=== PATIENT | male | born 1965 | race Caucasian/White ===

== ENCOUNTER → 2020-06-07 15:14 | Outpatient (REF) | payer OTHER, SELFPAY ==
--- NOTE | 2020-06-07 15:00 | CA_ITS ---
Transthoracic Echocardiogram Patient (Last, First, Middle): Christopher Jeffery M Gender: Male Date of : 1965 Age: 54 Procedure Date: 06/07/2020 Procedure Type: Transthoracic Echocardiogram Location: OP Height: 175.26 cm Weight: 113.4 kg BSA: 2.27 m2 Heart Rate: bpm BP: 120 / 80 mmHg Cloth Opener Hand: JAYSON Referring MD: Franco Arana [facility] Symptoms: R01.1 SYSTOLIC MURMUR Study Quality: Good ECG Rhythm: Sinus Conclusions: - The left ventricular systolic function is normal. The visually estimated ejection fraction is between 60-65%. - No obvious valvular pathology seen on this study. Findings Left Ventricle Normal left ventricular cavity size. There is normal left ventricular wall thickness. The left ventricular systolic function is normal. The visually estimated ejection fraction is between 60-65%. There is no evidence of regional wall motion abnormalities. Diastolic function is normal for age. Right Ventricle Normal right ventricular cavity size and systolic function. Atria The left atrium is normal in size. The right atrium is normal in size. Aortic Valve There is a normal trileaflet aortic valve. There is no aortic valve stenosis. There is no aortic valve regurgitation. Mitral Valve The mitral valve appears normal. There is trace mitral valve regurgitation. There is no mitral valve stenosis. Pulmonic Valve The pulmonic valve was not well visualized. There is trace pulmonic valve regurgitation. Tricuspid Valve Normal tricuspid valve structure. There is trace tricuspid valve regurgitation. The pulmonary artery systolic pressure is normal. Great Vessels The aortic annulus, sinuses of valsalva, and asc aorta are normal in size. Venous The inferior vena cava is normal in size and collapses greater than 50% with inspiration. Pericardium/Pleural There is no evidence of pericardial effusion. Prior Study Comparison No prior study available for comparison. Recommendations, Care & Conclusions No obvious valvular pathology seen on this study. Measurements 2D Linear Measurements IVSd: 1.00 0.6-0.9/0.6-1.0 cm LVIDd: 4.01 3.9-5.3/4.2-5.9 cm LVIDd Index: 1.77 2.4-3.2/2.2-3.1 cm/m2 LVIDs: 2.89 2.0-3.6 cm LVPWd: 0.91 0.7-1.1 cm Ao Root: 3.00 2.1-3.5 cm LA Diam: 3.90 2.7-3.8/3.0-4.0 cm LAIDs Index: 1.72 1.5-2.3 cm/m2 LV Mass: 148.28 67-162/88-224 g LV Mass Index: 65.32 43-95/49-115 g/m2 LVOT Diam: 2.20 3.0+(-)1.3 cm 2D Systolic Function EF 4C: 73.80 >55% Mitral Valve MV Pk E: 0.60 MV PK A: 0.58 MV Decel Time: 195.00 E/A: 1.00 E'Lateral: 10.40 E'Medial: 7.54 E/E' Med: 7.90 E/E' Lat: 5.70 PHT: 57.00 MVA PHT: 3.86 Decel [place]: 3.05 Aortic Valve AoV Pk Fred: 1.14 AoV Pk Grad: 5.00 LVOT LVOT Pk Fred: 1.04 LVOT Mn Fred: 0.71 LVOT VTI: 0.21 LVOT Pk Grad: 4.00 LVOT Mn Grad: 2.00 LVOT Diam: 2.20 LVOT Area: 3.80 Diastolic Function MV Pk E: 0.60 MV Pk A: 0.58 E/A: 1.00 E'Medial: 7.54 E/E' Med: 7.90 E' Laterial: 10.40 E/E' Lat: 5.70 Great Vessels Aorta Ao Root-2D: 3.00 2.0-3.7 cm Ao Asc: 3.30 2.1-3.4 cm Updated in Other Vendor System with Status of Final Jose Cruz Villegas MD electronically signed on 06/09/2020 5:21:42 PM with status of Final
== END ==
LOC: HO.CARD 15:14
PROVIDERS: PCP Nurse Practitioner Family; Visit Provider Nurse Practitioner Family
DX: R01.1 Cardiac murmur, unspecified (principal)
CPT/HCPCS: 93306

== ENCOUNTER 2020-06-29 14:52 | Outpatient (REF) | payer OTHER, SELFPAY ==
--- NOTE | 2020-06-29 14:56 | US_ITS ---
EXAMINATION: US ABDOMEN LIMITED CLINICAL INFORMATION: Abdominal bulge. Evaluate for hernia.. COMPARISON: None TECHNIQUE: Real-time imaging of the midline upper abdominal wall using a linear and curved transducer FINDINGS: No hernia is appreciated by ultrasound. No solid or cystic soft tissue mass or fluid collection is seen. US/US abdomen limited IMPRESSION: No hernia appreciated by ultrasound.
== END 2020-06-29 14:53 | disposition home or self-care (01) ==
LOC: HO.HMGCX 14:52
PROVIDERS: PCP Nurse Practitioner Family; Visit Provider Nurse Practitioner Family
DX: R10.31 Right lower quadrant pain (principal)
CPT/HCPCS: 76705

== ENCOUNTER 2025-04-20 09:45 | Outpatient (REF) | payer OTHER, SELFPAY ==
[2025-04-20 14:06] LABS: Hematocrit 46.9 % (42.0-52.0); Hemoglobin 16.3 g/dl (14.0-18.0); Mean Corpuscular HGB Conc 34.8 g/dl (31.0-36.0); Mean Corpuscular Hemoglobin 31.2 pg (27.0-33.0); Mean Corpuscular Volume 89.7 fL (80.0-98.0); NRBC Abs Auto 0.000 X10*3/uL (0.0-0.012); NRBC Pct Auto 0.0 /100WBC (0.0-0.2); Platelet Count 270 X10*3/uL (160-400); Red Blood Count 5.23 X10*6/uL (4.60-5.80); White Blood Count 6.9 X10*3/uL (4.8-10.8)
[2025-04-20 14:18] LABS: Hemoglobin A1C 160.6561 umol/L; Total Hemoglobin (HGBA1C) 4227.8221 umol/L
[2025-04-20 14:30] LABS: Alanine Aminotransferase 66 U/L (0-40); Albumin Level 4.8 g/dL (3.5-5.0); Alkaline Phosphatase 89 U/L (39-117); Anion Gap 14 (12-20); Aspartate Amino Transferase 45 U/L (5-37); Blood Urea Nitrogen 14 mg/dL (9-16); Calcium 9.6 mg/dL (8.4-10.2); Carbon Dioxide 24 mmol/L (22-29); Chloride 104 mmol/L (96-108); Cholesterol 221 mg/dL (<200); Estimated Glomerular Filt Rate > 60; HDL Cholesterol 33 mg/dL (>40); Potassium 3.9 mmol/L (3.3-5.1); Sodium 138 mmol/L (135-145); Total Protein 7.9 g/dL (6.5-8.0); Triglycerides 453 mg/dL (<150)
[2025-04-20 14:31] LABS: Microalbum/Creatinine Ratio Ur 11.8 ug/mg cr (<30)
[2025-04-20 14:54] LABS: Folate 7.8 ng/mL (> or = 4.0); Vitamin B12 446 pg/mL (200-900)
== END 2025-04-20 09:46 | disposition home or self-care (01) ==
LOC: HO.WFDLDS 09:45
PROVIDERS: PCP Nurse Practitioner Family; Visit Provider Nurse Practitioner Family
DX: Z00.00 Encounter for general adult medical examination without abnormal findings (principal); Z13.1 Encounter for screening for diabetes mellitus; Z12.5 Encounter for screening for malignant neoplasm of prostate; Z76.89 Persons encountering health services in other specified circumstances; I10 Essential (primary) hypertension; E66.9 Obesity, unspecified; Z68.38 Body mass index [BMI] 38.0-38.9, adult
CPT/HCPCS: 36415; 80053; 80061; 82043; 82306; 82570; 82607; 82746; 83036; 84153; 84443; 85027; 96127

== ENCOUNTER 2025-04-20 09:45 | Outpatient (AMB) | payer OTHER, SELFPAY ==
--- NOTE | 2025-04-20 09:58 | MHC.PC.OV ---
Vital Signs 04/20/25 10:05 04/20/25 10:12 04/20/25 10:45 Height 5 ft 9 in Weight 260 lb 8 oz BMI 38.5 BP 154/96 H 152/100 H 160/90 H Blood Pressure Location Lt brachial Lt brachial Lt brachial Position Sitting Sitting Sitting Respiration 16 Pulse 76 Pulse Source Pulse Oximeter Temp 97.8 F Temp Source Oral Pulse Oximetry (%) 96 Oxygen Delivery Method Room Air Intake Visit Reasons: CPE Intake Note: New patient visit Mediator Required: No Allergies No Known Allergies (No Known Allergies*) Allergy (Verified 04/20/25 10:34) Medication List - Last Reconciled 04/20/25 by GRADY Enriquez No Known Home Meds Tobacco use date assessed: 04/20/25 Dental Screening Dental Screen Date: 04/20/25 Did you have a dental visit in the last 12 months?: No Did you have a dental problem in the last 6 months where you did not have access to dental care?: No Was dental information given to patient?: Patient declined HPI HPI Comments History of Present Illness Details 59 y/o M with HTN, obesity Surgery: ACL R repair, L collar bone w/ plate Fhx: Mom cancer; Dad 2022; 2 sisters (1 with DM), 1 bro; 5 children alive and well. 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 . Health Maintenance: Tdap 2022 Colon 2017, poor prep; cologaurd ordered today Specialists: None History of Present Illness - The patient is a 59-year-old male presenting to [facility] care and for a CPe - Previous PCP: Franco Arana, limited records avail, reviewed. - History of essential hypertension controlled with hydrochlorothiazide and lisinopril, now untreated for three years. - No blood pressure issues noted during DOT exams off medication. - Admits to blood pressure increase following consumption of coffee. - Obesity with BMI of 38.5 was noted - Denies current systemic symptoms related to cardiovascular or respiratory systems. Past Surgical History - Previous ACL surgery with subsequent plate placement, not removed. Family History - Mother from cancer of unspecified type. - Father , cause related to pneumonia and underlying illnesses. - Sister with diabetes. - Brother and other sister reported healthy. 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 - Resides in [place]; moved to support son's education and lives by a appiah. - Five children, with one reported to have ADHD; youngest child is 15 and interested in professional fishing. - Reports no current eye examination concerns, though regular vision screenings occur during DOT exams. Health Maintenance - Positive discussion of colon cancer screening via home test kit preferred by the patient. Ordered home fecal test (Cologuard). - No recent colonoscopy since 2018 due to inadequate prep. - Routine DOT vision monitoring discussed but no vessel checks performed during these exams. Review of Systems - Cardiovascular: Denies chest pain, shortness of breath, swelling. - Visual: Denies visual disturbances or need for glasses. - Auditory: Denies ringing in ears. - Respiratory: Denies shortness of breath. - Gastrointestinal: Denies abdominal pain or discomfort. - Musculoskeletal: Recent toe injury, healing appropriately, otherwise unremarkable. - General: Denies headaches, physical complaints reported were temporary and resolved (i.e., coffee-related elevated blood pressure). Physical Exam General: Well developed, well nourished, in no acute distress. Appears stated age. Head: Normocephalic, atraumatic. Eyes: Pupils are equal, round and reactive to light and accommodation. Conjunctivae are clear. Vision grossly normal. Ears: TMs clear AU, EACS WNL. . Nose: Patent, without discharge. Neck: Supple, no adenopathy or thyromegaly. Breast: Edu on SBE Lungs: Clear to auscultation bilaterally. No rales, rhonchi or wheeze noted. Good air flow in all acharya. Heart: Regular rate and rhythm. No murmurs, click, rubs or gallops are noted. Abdomen: Bowel sounds present in all quadrants. The abdomen is soft, nontender, with no masses or organomegaly noted. No hernias are noted. : Deferred. 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 Extremities: No clubbing, cyanosis nor edema is noted. Patient reports a history of a broken toe on the left side, currently healed. Neurologic: Gait and station normal. Cranial Nerves 2-12 intact. Motor strength grossly symmetrical and intact. No sensory loss. Balance normal. Skin: No rashes, ulcers, or lesions noted. Turgor is good. Skin color is good. Hair and nails are without abnormalities. Psych: Normal eye contact, affect and mood appropriate, and normal interactions. Patient is alert and appropriate to context. Results Pending Discussion Notes During the visit, we discussed the patient's need for a reevaluation of his blood pressure management due to the lapse in medication adherence. The importance of resuming antihypertensive therapy with possible medication reassessment after lab evaluation was emphasized. The patient was amenable to home monitoring or using local facilities for blood pressure checks and agreed to return within two weeks for follow-up and review of blood pressure logs and lab results. For screening, a home-based fecal test for colon cancer screening was ordered. The pros and cons, simplicity, and follow-through of the home fecal test were explained. The patient consented to this plan and will be notified of the results. Return precautions for high blood pressure were reviewed, including potential lifestyle modifications. Patient was given time to ask questions. All questions were answered to their satisfaction. Assessment and Plan 1. Essential Hypertension - Medication assessment post-lab results, BP monitoring at home/pharmacy. - Follow-up in two weeks for BP and lab review. 2. Obesity - Current BMI of 38.5, lifestyle discussions not specified during visit. 3. Family History of Diabetes - Noted for future reference. 4. Family History of Cancer - Ordered Cologuard for home colon cancer screening. Patient Instructions - Continue monitoring your blood pressure at home or local pharmacy. - Return in two weeks with blood pressure logs for review. - Follow up on home fecal test for colon cancer screening and complete upon receipt. - Note changes that might require earlier consultation (high BP symptoms, lab results). Consent Patient was informed and verbally consented to the use of an ambient scribe for clinic note documentation during this visit. An additional 35 minutes was spent addressing the problem(s) noted at todays visit. This includes time spent before the visit reviewing the chart, time spent during the visit, and time spent after the visit on documentation reviewing laboratory results, diagnostic imaging, medications, performing a medically necessary evaluation, counseling on diagnoses, care coordination, ordering appropriate tests, ordering appropriate medications, review of tests performed by other providers, reporting test results with the patient, communication with other healthcare providers. 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 1. Little interest or pleasure in doing things: not at all 2. Feeling down, depressed, or hopeless: not at all 3. Trouble falling or staying asleep, or sleeping too much: not at all 4. Feeling tired or having little energy: not at all 5. Poor appetite or overeating: not at all 6. Feeling bad about yourself - or that you are a failure or have let yourself or your family down: not at all 7. Trouble concentrating on things, such as reading the newspaper or watching television: not at all 8. Moving or speaking so slowly that other people could have noticed. Or the opposite - being so fidgety or restless that you have been moving around a lot more than usual: not at all 9. Thoughts that you would be better off or of hurting yourself in some way: not at all Total score: 0 Depression Screening Interpretation: Negative Depression Screening Done: Yes 93468 - PHQ-9 Billing: Yes Source: Developed by Drs. Maldonado Sheehan, Jennifer Saeed, Juni Baez and colleagues, with an educational bertha from [employer]. Thrive Questionnaire Date Thrive assessed: 04/13/25 I am a: Patient What is your living situation today?: I have a steady place to live Within the past 12 months, did the food you bought not last and you didn't have the money to get more?: Never true Within the past 12 months, did you worry whether your food would run out before you got money to buy more?: Never true Do you have trouble paying for medicines?: No Do you have trouble getting transportation to medical appointments?: No Do you have trouble paying your heating and electricity bill?: No Do you have trouble taking care of your child, family member or friend?: No Do you have trouble with day-to-day activities such as bathing, preparing meals, shopping, managing finances, etc.?: No Are you currently unemployed and looking for a job?: No Are you interested in more education?: No Please select the resources that you would like help with: None Currently or been in a relationship where the following occur: No concerns reported THRIVE Score: 0 AUDIT C Alcohol Use Questionnaire (AUDIT-C) 1. How often do you have a drink containing alcohol?: 2-4 times a month 2. How many drinks containing alcohol do you have on a typical day when you are drinking?: 3 or 4 3. How often do you have six or more drinks on one occasion?: Never Total Score: 3 Score Reviewed/Action Taken: Yes KERWIN-7 AMB Questionnaire KERWIN-7 Date KERWIN - 7 assessed: 04/20/25 Feeling nervous, anxious, or on edge: 0 = Not at all Not being able to stop or control worryin = Not at all Worrying too much about different things: 0 = Not at all Trouble relaxin = Not at all Being so restless that it is hard to sit still: 0 = Not at all Becoming easily annoyed or irritable: 0 = Not at all Feeling afraid as if something awful might happen: 0 = Not at all Total KERWIN-7 score (0-4 normal; 5-9 mild; 10-14 moderate; 15-21 severe): 0 Source: Developed by Drs. Maldonado Sheehan, Jennifer Saeed, Juni Baez and colleagues, with an educational bertha from [employer]. KERWIN-7 Assessment Billing KERWIN-7 Assessment Tool: KERWIN-7 Assessment 59176 Physical exam (Primary Care) Vital Signs: Last Vital Signs Temp 97.8 F 04/20/25 10:05 Pulse 76 04/20/25 10:05 Resp 16 04/20/25 10:05 BP 152/100 H 04/20/25 10:12 Pulse Ox 96 04/20/25 10:05 Oxygen Delivery Method Room Air 04/20/25 10:05 BMI result Body Mass Index 38.5 BMI Assessment/Plan discussion: High BMI High, discussed plan: lifestyle Tobacco/Smoking Status: Tobacco use Status Tobacco use date assessed 04/20/25 04/20/25 10:08 Patient Tobacco Use Status Never used Tobacco 04/20/25 10:11 e-Cigarette/Vaping Use Never Used 04/20/25 10:11 PHQ-9: PHQ-9 Score PHQ-9: Total score 0 04/20/25 10:00 Depression Screening Interpretation: Negative Thrive Assessment: Date of Thrive Assessment Date Thrive assessed 04/13/25 04/20/25 10:00 Currently or been in a relationship where the following occur: No concerns reported Coding Level of Care Code New Pt Level 3 (36323) New Pt Prev Care 40-64y(57252) Diagnoses Encounter to establish care with new provider Z76.89 Primary hypertension I10 Hypertension type: primary hypertension Laboratory exam ordered as part of routine general medical examination Z00.00 Screening for colon cancer Z12.11 Obesity (BMI 30-39.9) E66.9 Encounter for general adult medical examination without abnormal findings Z00.00 Additional Codes KERWIN-7 Assessment Billing - KERWIN-7 Assessment Tool: KERWIN-7 Assessment 92183 ([id number]) PHQ-9 - 08820 - PHQ-9 Billing: Yes ([id number]) Assessment & Plan Assessment & Plan (1) Encounter to establish care with new provider: Code(s): Z76.89 - Persons encountering health services in other specified circumstances (2) HTN (hypertension): Code(s): I10 - Essential (primary) hypertension Category: Medical Qualifiers: Hypertension type: primary hypertension Qualified Code(s): I10 - Essential (primary) hypertension (3) Laboratory exam ordered as part of routine general medical examination: Code(s): Z00.00 - Encounter for general adult medical examination without abnormal findings Category: Medical (4) Screening for colon cancer: Comment: cologaurd ordered 04/2025 Code(s): Z12.11 - Encounter for screening for malignant neoplasm of colon Category: Medical (5) Obesity (BMI 30-39.9): Code(s): E66.9 - Obesity, unspecified Category: Medical (6) Encounter for general adult medical examination without abnormal findings: Onset Date: ~04/20/25 Code(s): Z00.00 - Encounter for general adult medical examination without abnormal findings Category: Medical Plan . Orders: Orders Hemoglobin A1c Today Z00.00 - Encounter for general adult medical examination without abnormal findings Lipid Panel Today Z00.00 - Encounter for general adult medical examination without abnormal findings Microalbumin, Random (w Creat) Today Z00.00 - Encounter for general adult medical examination without abnormal findings TSH reflex Free T4 Today Z00.00 - Encounter for general adult medical examination without abnormal findings Complete Blood Count no Diff Today Z00.00 - Encounter for general adult medical examination without abnormal findings Comprehensive Met. Panel Today Z00.00 - Encounter for general adult medical examination without abnormal findings Prostate Specific Antigen Scr Today Z00.00 - Encounter for general adult medical examination without abnormal findings Vitamin B12 and Folate Today Z00.00 - Encounter for general adult medical examination without abnormal findings Vitamin D 25-OH Total Today Z00.00 - Encounter for general adult medical examination without abnormal findings Referrals Cologuard Test Z12.11 - Encounter for screening for malignant neoplasm of colon, Z12.12 - Encounter for screening for malignant neoplasm of rectum Medications: Discontinued hydrochlorothiazide Discontinued Reason: Patient no longer taking 12.5 mg (1/2 x 25 mg) PO QAM 45 tabs 1RF lisinopril Discontinued Reason: Patient no longer taking 30 mg PO DAILY 90 tabs 1RF Patient Instructions: Walk-In Care (Urgent Care): We Make it Easy Walk-in for urgent medical issues such as: ? Seasonal Allergies ? Insect Bites ? Cough ? Diarrhea ? Acute Asthma Attacks ? Back, Knee or Joint Pain ? Ear Infection ? Fever without a Rash ? Headaches ? Nausea ? [place]illa Eye, Rash or Skin Irritation ? Sore Throat ? Sports Physicals ? Vomiting Most insurances are accepted. Patients do not need to be part of the [facility] to seek care at the walk-in clinic. Locations [facility] [place], [place] [address] ? [phone] [facility] in [place] provides services to ages 18 and over. Open Saturday-Saturday: 8 a.m. to 5 p.m. and Saturday: 9 a.m. to 3 p.m.* *Hours may vary due to staffing availability. To confirm Walk-In Care hours in [place], please call [phone]. [address] [place] [address] ? [phone] [facility] in [place] provides services to ages 12 and over. Open Saturday-Saturday: 8 a.m. to 5 p.m. Hours may vary due to staffing availability. To confirm Walk-In Care hours in [place], please call [phone]. LABORATORY SERVICES: [facility] ? Primary Location [address] [place] [address] Saturday through Saturday 6:00 AM ? 5:00 PM Saturday 7:00 AM ? 11:00 AM* [phone] The [facility] is centrally located near the front entrance of the [facility] for easy outpatient access. Convenient parking is provided for outpatients. *Hours may vary due to staffing availability. To confirm Laboratory hours for any location, please call [phone]. Offsite Location For your convenience, we offer offsite laboratory draw stations at the following locations: [address] [place] [address] ? [address], [address] Saturday through Saturday 7:30 AM ? 1:00 PM* [phone] *Hours may vary due to staffing availability. To confirm Laboratory hours for any location, please call [phone]. [place] ? [address], [place] Saturday through Saturday 6:00 AM ? 3:30 PM* Saturday 6:30 AM ? 3 PM* [phone] *Hours may vary due to staffing availability. To confirm Laboratory hours for any location, please call [phone] [place] [address] Saturday through Saturday 7:30 AM ? 4:00 PM* [phone] *Hours may vary due to staffing availability. To confirm Laboratory hours for any location, please call [phone] [place] [address] Saturday through 9:00 AM ? 4:00 PM* *Hours may vary due to staffing availability. To confirm Laboratory hours for any location, please call [phone]. Appointments are not necessary. Walk-ins are welcome. Like all the departments throughout the [facility], our Lab undergoes frequent reviews to ensure the quality and accuracy of test results, and our staff takes special pride in its status as a nationally accredited facility. Patient Portal: ONE PATIENT. ONE RECORD. BETTER CARE. [facility] has a fully integrated, cutting-edge mobile electronic health information system that has revolutionized the way we care for our patients and manage our organization. This system improves communication and coordination enabling us to provide safe, higher-quality care, and an overall positive experience for staff and patients. Our first priority, as always, is to deliver the highest quality care possible. The system is running in the background supporting that priority. This portal is for all [facility] services and practices. If you are experiencing any technical difficulties with enrolling or logging into the Patient Portal please complete the [facility] Patient Portal Technical Support Form. [facility] now offers a new secure on-line interactive tool for patients to review their health information ? ?Patient Portal. This interactive web portal will enable patients and their families to take an active role in their care by providing easy, secure access to their health information via the internet. The Patient Portal provides patients with instant access to their health information, including laboratory results, medications, allergies, demographic information, visit history, and more. In addition to managing their own care, parents and health care proxies with authorized consent will appreciate the ability to access the records of those individuals for whom they provide care. Please note: if you wish to gain access (Proxy) to another patient?s portal, you will be required to come to the Medical Records Department in person at [facility]. Both the patient giving proxy access and the proxy will need to provide photo identification and complete the appropriate authorization. The Patient Portal also allows track their appointments online. The [facility] Patient Portal also saves patients time by allowing them to submit updates to their demographic and contact information prior to their visits. Portal email notifications will also alert patients to any new activity on their portal, such as test results and new appointments. In order to initially enroll in the [facility] Patient Portal, you will need to enter some required information including the following: your [facility] Medical Record number your personal home email address name date of Please note: In order to enroll in the [facility] Patient Portal, we need to have your email address on file in your electronic medical record. ?The email address needs to be specific for one person (yourself) in order for your Portal enrollment to be successful. ?You can update your email address in person with our Registration staff when you are registering for a hospital visit. ?Otherwise, you will need to come to the Health Information Management (Medical Records) Department at [facility]. ?We are open from Saturday ? Saturday from 7:30 a.m. ? 4:30 p.m. ?You will be required to present a photo id. Once you have successfully enrolled in the Patient Portal, you will receive a one-time user id and password for the Portal, sent to your email address. ?This will allow you to log into the Patient Portal within 99 hrs and reset your own logon id and password, and define personal security questions. ?Once your permanent login and password have been set, you can log into the [facility] Patient Portal at any time via the blue button above or from the Portal Logon button on any page of the [facility] website. [facility] and [facility] encourage all of our patients to enroll in Patient Portal as it presents a valuable opportunity for patients and their families to actively participate in their care and stay healthy Welcome to [facility]. ?We look forward to working with you. Health screenings for men You should visit your health care provider regularly, even if you feel healthy. The purpose of these visits is to: Screen for medical issues Assess your risk for future medical problems Encourage a healthy lifestyle Update vaccinations and other preventive care services Help you get to know your provider in case of an illness Information Even if you feel fine, you should still see your provider for regular checkups. These visits can help you avoid problems in the future. For example, the only way to find out if you have high blood pressure is to have it checked regularly. High blood sugar and high cholesterol level also may not have any symptoms in the early stages. Simple blood tests can check for these conditions. There are specific times when you should see your provider or receive specific health screenings. The [place] Preventive Services Task Force publishes a list of recommended screenings. Below are screening guidelines for men ages 40 to 64. BLOOD PRESSURE SCREENING Have your blood pressure checked at least once every year. Watch for blood pressure screenings in your area. Ask your provider if you can stop in to have your blood pressure checked. Ask your provider if you need your blood pressure checked more often if: You have diabetes, heart disease, kidney problems, or are overweight or have certain other health conditions You have a first-degree relative with high blood pressure You are Black Your blood pressure top number is from 120 to 129 mm Hg, or the bottom number is from 70 to 79 mm Hg If the top number is 130 mm Hg or greater or the bottom number is 80 mm Hg or greater, this is considered stage 1 hypertension. Schedule an appointment with your provider to learn how you can lower your blood pressure. Effects of age on blood pressure CHOLESTEROL SCREENING Cholesterol screening should begin at age 35 for men with no known risk factors for coronary heart disease. Repeat cholesterol screening should take place: Every 5 years for men with normal cholesterol levels More often if changes occur in lifestyle (including weight gain and diet) More often if you have diabetes, heart disease, kidney problems, or certain other conditions COLORECTAL CANCER SCREENING If you are under age 45, talk to your provider about getting screened. You may need to be screened if you have a strong family history of colon cancer or polyps. Screening may also be considered if you have risk factors such as a history of inflammatory bowel disease or polyps. If you are age 45 to 75, you should be screened for colorectal cancer. There are several screening tests available: A stool-based fecal occult blood (gFOBT) or fecal immunochemical test (FIT) every year A stool sDNA test every 1 to 3 years Flexible sigmoidoscopy every 5 years or every 10 years with stool testing FIT done every year CT colonography (virtual colonoscopy) every 5 years Colonoscopy every 10 years You may need a colonoscopy more often if you have risk factors for colorectal cancer, such as: Ulcerative colitis A personal or family history of colorectal cancer A history of growths in your colon called adenomatous polyps DENTAL EXAM Go to the dentist once or twice every year for an exam and cleaning. Your dentist will evaluate if you have a need for more frequent visits. DIABETES SCREENING All adults who do not have risk factors for diabetes should be screened starting at age 35 and repeated every 3 years. If you have other risk factors for diabetes, such as a first degree relative with diabetes, overweight or obesity, high blood pressure, prediabetes, or a history of heart disease, you may be tested more often. If you are overweight and have other risk factors, such as high blood pressure and are planning to become , screening is recommended. EYE EXAM Have an eye exam every 2 to 4 years ages 40 to 54 and every 1 to 3 years ages 55 to 64. Your provider may recommend more frequent eye exams if you have vision problems or glaucoma risk. Have an eye exam that includes an examination of your retina (back of your eye) at least every year if you have diabetes. IMMUNIZATIONS Commonly needed vaccines include: Flu shot: get one every year COVID-19 vaccine: ask your provider what is best for you Tetanus-diphtheria and acellular pertussis (Tdap) vaccine: have as one of your tetanus-diphtheria vaccines if you did not receive it as an adolescent Tetanus-diphtheria: have a booster (or Tdap) every 10 years Varicella vaccine: receive 2 doses if you never had chickenpox or the varicella vaccine and were born in 1979 or after Hepatitis B vaccine: receive 2, 3, or 4 doses, depending on your exact circumstances, if you did not receive these as a child or adolescent, until age 59 Shingles (herpes zoster) vaccine: at or after age 50 Ask your provider if you should receive other immunizations, especially if you have certain medical conditions, such as diabetes or are at increased risk for some diseases such as pneumonia. INFECTIOUS DISEASE SCREENING Screening for hepatitis C: all adults ages 18 to 79 should get a one-time test for hepatitis C. Screening for human immunodeficiency virus (HIV): all people ages 15 to 65 should get a one-time test for HIV. Depending on your lifestyle and medical history, you may need to be screened for infections such as syphilis, chlamydia, and other infections. LUNG CANCER SCREENING You should have an annual screening for lung cancer with low-dose computed tomography (LDCT) if: You are age 50 to 80 years AND You have a 20 pack-year smoking history AND You currently smoke or have quit within the past 15 years OSTEOPOROSIS SCREENING If you are age 50 to 64 and have risk factors for osteoporosis, you should discuss screening with your provider. Risk factors can include long-term steroid use, low body weight, smoking, heavy alcohol use, having a fracture after age 50, or a family history of hip fracture or osteoporosis. Osteoporosis PHYSICAL EXAM All adults should visit their provider from time to time, even if they are healthy. The purpose of these visits is to: Screen for diseases Assess risk of future medical problems Encourage a healthy lifestyle Update vaccinations and other preventive care services Maintain a relationship with a provider in case of an illness Your height, weight, and body mass index (BMI) should be checked at every exam. During your exam, your provider may ask you about: Depression and anxiety Diet and exercise Alcohol and tobacco use Safety, such as use of seat belts and smoke detectors Your medicines and risk for interactions PROSTATE CANCER SCREENING If you're 55 through 69 years old, before having the test, talk to your provider about the pros and cons of having a PSA test. Ask about: Whether screening decreases your chance of dying from prostate cancer. Whether there is any harm from prostate cancer screening, such as side effects from testing or overtreatment of cancer when discovered. Whether you have a higher risk of prostate cancer than others. If you are age 55 or younger, screening is not generally recommended. You should talk with your provider about if you have a higher risk for prostate cancer. Risk factors include: Having a family history of prostate cancer (especially a brother or father) Being If you choose to be tested, the PSA blood test is repeated over time (yearly or less often), though the best frequency is not known. Prostate examinations are no longer routinely done on men with no symptoms. Prostate cancer SKIN EXAM Your provider may check your skin for signs of skin cancer, especially if you're at high risk. People at high risk include those who have had skin cancer before, have close relatives with skin cancer, or have a weakened immune system. TESTICULAR EXAM The [place] Preventive Services Task Force (USPSTF) now recommends against performing testicular self-exams. Doing testicular self-exams has been shown to have little to no benefit.
[2025-04-20 10:05] VITALS: BP 154/96; PULSE 76; RESP 16; TEMP 36.6; O2SAT 96; BMI 38.5
[2025-04-20 10:12] VITALS: BP 152/100
[2025-04-20 10:45] VITALS: BP 160/90
--- OUTSIDE RECORDS SUMMARY | 2025-04-20 10:52 | XMS_ITS | Clinical Summary ---
Author Organization [employer] Address [address] [place] [address] Care Team Providers Care Hands Assembler Name Role Phone Stephanie Little Unavailable Unavailable Felix Jay Unavailable Unavailable Social History Tobacco Use Types Packs/Day Years Used Date Smoking Tobacco: Never Assessed Sex and Gender Information Value Date Recorded Sex Assigned at Not on file Legal Sex Male 8:32 PM EDT Gender Identity Not on file Sexual Orientation Not on file Plan of Treatment Health Maintenance Due Date Last Done Comments CT Colonography 1965 Colonoscopy 1965 Colorectal Cancer Screening 1965 Depression Screening 1965 FIT DNA/Cologuard 1965 FIT 1965 FOBT 1965 Lipid Panel 1965 Sigmoidoscopy 1965 Disability Screening 1965 Alcohol/Substance Use Screening 1977 Tobacco Screening 1977 DTaP/Tdap/Td Vaccines (1 - Tdap) 1984 Hepatitis B Vaccines (1 of 3 - 19+ 3-dose series) 1984 Pneumococcal Vaccine: 50+ Ye ars (1 of 1 - PCV) 12/14/2015 Zoster Vaccines (1 of 2) 12/14/2015 COVID-19 Vaccine ( - 2023-2 5 season) 2024 Influenza Vaccine (#1) 2025 RSV Patients and Pa tients Aged 60 years or older (1 - 1-dose 75+ series) 2040 HIB Vaccines Aged Out No longer eligi ble based on patient's age to complete this topic HPV Vaccines Aged Out No longer eligi ble based on patient's age to complete this topic Hepatitis A Vaccines Aged Out No long er eligible based on patient's age to complete this topic IPV Vaccines Aged Out No longer eligi ble based on patient's age to complete this topic Meningococcal B Vaccine Aged Out No l onger eligible based on patient's age to complete this topic Meningococcal Vaccine Aged Out No rohan lia eligible based on patient's age to complete this topic RSV under 20 months Aged Out No longe r eligible based on patient's age to complete this topic Rotavirus Vaccines Aged Out No longer eligible based on patient's age to complete this topic Care Teams Hands Assembler Relationship Specialty Start Date End Date Stephanie Little Community Health Worker 10/10/22 Felix Jay Community Health Worker 07/04/23
== END 2025-04-20 10:52 | disposition home or self-care (01) ==
LOC: HO.HMCFM 09:46
PROVIDERS: PCP Nurse Practitioner Family; Visit Provider Nurse Practitioner Family
DX: Z00.00 Encounter for general adult medical examination without abnormal findings (principal); I10 Essential (primary) hypertension; Z68.38 Body mass index [BMI] 38.0-38.9, adult; E66.9 Obesity, unspecified; Z12.11 Encounter for screening for malignant neoplasm of colon; Z76.89 Persons encountering health services in other specified circumstances

== ENCOUNTER 2025-05-07 10:31 | Outpatient (AMB) | payer OTHER, SELFPAY ==
--- NOTE | 2025-05-07 10:34 | A.OFFPC_ITS ---
Vital Signs 05/07/25 10:37 05/07/25 11:03 Height 5 ft 9 in Weight 259 lb BMI 38.2 BP 160/100 H 158/98 H Blood Pressure Location Rt brachial Rt brachial Position Sitting Sitting Respiration 13 Pulse 71 Pulse Source Pulse Oximeter Temp 97.2 F Temp Source Oral Pulse Oximetry (%) 98 Oxygen Delivery Method Room Air Intake Visit Reasons: 2 weeks 30 min bp recheck and lab review Intake Note: Follow up on htn and review labs. [place] Required: No Allergies No Known Allergies (No Known Allergies*) Allergy (Verified 05/07/25 10:35) Medication List - Last Reconciled 05/07/25 [facility] No Known Home Meds Tobacco use date assessed: 05/07/25 Dental Screening Dental Screen Date: 05/07/25 Did you have a dental visit in the last 12 months?: Yes Did you have a dental problem in the last 6 months where you did not have access to dental care?: No Was dental information given to patient?: Patient has dentist HPI HPI Comments History of Present Illness Details 59 y/o M with HTN, obesity, elevated LFT , HLD Surgery: ACL R repair, L collar bone w/ plate Fhx: Mom cancer; Dad 2022; 2 sisters (1 with DM), 1 bro; 5 children alive and well. 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 . Health Maintenance: Tdap 2022 Colon 2017, poor prep; cologaurd ordered today Specialists: None History of Present Illness - The patient is a 59-year-old male pres enting with follow-up for hypertension. - Untreated hypertension, not monitored at home. No symptoms like chest pain, shortness of breath, visual issues. - Recent labs indicate hypercholesterole denise. - Elevated liver enzymes No belly pain, urine normal color; moderate alcohol use. - Completed and returned Cologuard test; awaiting results. Review of Systems - Cardiovascular: Reports high blood pre ssure. Denies chest pain. - Respiratory: Denies shortness of breat h. - Ophthalmic: Denies visual problems. - Gastrointestinal: Denies abdominal jay n. Reports occasional alcohol consumption. - Genitourinary: Reports urine normal in color. Physical Exam General: Well developed, well nourished, in no acute distress. Appears stated age. Head: Normocephalic, atraumatic. Eyes: Pupils are equal, round and reactive to light and accommodation. Conjunctivae are clear. Lungs: Clear to auscultation bilaterally. No rales, rhonchi or wheeze noted. Good air flow in all acharya. Heart: Regular rate and rhythm. No murmurs, click, rubs or gallops are noted. Abdomen: Bowel sounds present in all quadrants. The abdomen is soft, nontender, with no masses or organomegaly noted. No hernias are noted. Musculoskeletal: Joints are nontender, without swelling, redness, or effusions. Pulses: Peripheral pulses are equal and palpable bilaterally. Extremities: No clubbing, cyanosis nor edema is noted. Psych: Mood and affect appropriate. Results see below . Discussion Notes During the visit, I discussed with the patient the need to resume medication for hypertension, prescribing losartan 50 mg once daily. . I explained that losartan can cause increased urination. Additionally, I recommended atorvastatin for managing hypercholesterolemia. It's critical to be consistent with these medications, and I instructed him to take both at the same time to avoid missing doses. Follow-up in 4 weeks to assess blood pressure response, repeat labs for electrolytes. I outlined the diagnostic findings pointing to a likely diagnosis of non-alcoholic fatty liver disease. Patient agreed to follow the plan, and instructions were given to maintain communication for lab results from the Cologuard test. Patient was given time to ask questions. All questions were answered to their satisfaction. Assessment and Plan 1. Essential Hypertension - Prescribe losartan 50 mg daily. Reasse ss blood pressure and electrolytes in 2- 4 weeks. 2. Hypercholesterolemia - Initiate atorvastatin 40mg QD . Reasse ss cholesterol levels in 3-4 months. 3. Elevated LFT - Monitor liver function with routine la bs. - reduce etoh - wt loss/diet mods. Patient Instructions - Take losartan 50 mg once daily, every morning or night consistently. - Take atorvastatin as instructed, at th e same time as losartan. - Follow up in 2-4 weeks for a blood pre ssure check and lab tests. - Watch for any unusual symptoms; report if they occur. - Await notification for Cologuard test results. Consent Patient was informed and verbally consented to the use of an ambient scribe for clinic note documentation during this visit. Total time spent caring for the patient today was 30 minutes. This includes time spent before the visit reviewing the chart, time spent during the visit, and ti me spent after the visit on documentation, reviewing laboratory results, diagnostic imaging, medications, performing a medically necessary evaluation, counseling on diagnoses, care coordination, ordering appropriate tests, ordering appropriate medications, review of tests performed by other providers, reporting test results with the patient, communication with other healthcare providers. 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 Current occupational exposures/hazards: No Cognitive needs: No Hearing needs: No Vision needs: No Questionnaire Thrive Questionnaire Date Thrive assessed: 04/13/25 I am a: Patient What is your living situation today?: I have a steady place to live Within the past 12 months, did the food you bought not last and you didn't have the money to get more?: Never true Within the past 12 months, did you worry whether your food would run out before you got money to buy more?: Never true Do you have trouble paying for medicines?: No Do you have trouble getting transportation to medical appointments?: No Do you have trouble paying your heating and electricity bill?: No Do you have trouble taking care of your child, family member or friend?: No Do you have trouble with day-to-day activities such as bathing, preparing meals, shopping, managing finances, etc.?: No Are you currently unemployed and looking for a job?: No Are you interested in more education?: No Please select the resources that you would like help with: None Currently or been in a relationship where the following occur: No concerns reported THRIVE Score: 0 KERWIN-7 AMB Questionnaire KERWIN-7 Date KERWIN - 7 assessed: 04/20/25 Source: Developed by Drs. Maldonado Sheehan, Jennifer Saeed, Juni Baez and colleagues, with an educational bertha from [employer]. Physical exam (Primary Care) Vital Signs: Last Vital Signs Temp 97.2 F 05/07/25 10:37 Pulse 71 05/07/25 10:37 Resp 13 05/07/25 10:37 BP 160/100 H 05/07/25 10:37 Pulse Ox 98 05/07/25 10:37 Oxygen Delivery Method Room Air 05/07/25 10:37 BMI result Body Mass Index 38.2 Tobacco/Smoking Status: Tobacco use Status Tobacco use date assessed 05/07/25 05/07/25 10:39 Patient Tobacco Use Status Never used Tobacco 05/07/25 10:34 e-Cigarette/Vaping Use Never Used 05/07/25 10:34 Thrive Assessment: Date of Thrive Assessment Date Thrive assessed 04/13/25 05/07/25 10:34 Currently or been in a relationship where the following occur: No concerns reported Results Reviewed Results Reviewed: 04/20/2025 Laboratory Result Units Range Interpretation Provider Comments White Blood Count 6.9 X10*3/uL (4.8-10.8) Red Blood Count 5.23 X10*6/uL (4.60-5.80) Hemoglobin 16.3 g/dl (14.0-18.0) Hematocrit 46.9 % (42.0-52.0) Mean Corpuscular Volume 89.7 fL (80.0-98.0) Mean Corpuscular Hemoglobin 31.2 pg (27.0-33.0) Mean Corpuscular Hemoglobin Concent 34.8 g/dl (31.0-36.0) Red Cell Distribution Width 12.2 % (11.0-16.0) Platelet Count 270 X10*3/uL (160-400) Mean Platelet Volume 10.7 fL (9.4-12.4) Nucleated RBC Absolute Count (auto) 0.000 X10*3/uL (0.0-0.012) Nucleated Red Blood Cells % (auto) 0.0 /100WBC (0.0-0.2) Sodium Level 138 mmol/L (135-145) Potassium Level 3.9 mmol/L (3.3-5.1) Chloride Level 104 mmol/L (96-108) Carbon Dioxide Level 24 mmol/L (22-29) Anion Gap 14 (12-20) Blood Urea Nitrogen 14 mg/dL (9-16) Creatinine 1.01 mg/dL (0.5-1.4) Estimated Creatinine Clearance Calc Not Reportable Estimat Glomerular Filtration Rate > 60 Random Glucose 109 mg/dL (60-115) Estimated Average Glucose 114 mg/dL Hemoglobin A1c Percent 5.6 % (<6.0) Calcium Level 9.6 mg/dL (8.4-10.2) Total Bilirubin 0.5 mg/dL (0.0-1.0) Aspartate Amino Transf (AST/SGOT) 45 U/L (5-37) High Alanine Aminotransferase (ALT/SGPT) 66 U/L (0-40) High Alkaline Phosphatase 89 U/L (39-117) Total Protein 7.9 g/dL (6.5-8.0) Albumin 4.8 g/dL (3.5-5.0) Triglycerides Level 453 mg/dL (<150) High Cholesterol Level 221 mg/dL (<200) High LDL Cholesterol, Calculated TNP HDL Cholesterol 33 mg/dL (>40) Low Prostate Specific Antigen Screen 0.67 ng/mL (<0.05-4.0) Vitamin B12 Level 446 pg/mL (200-900) 25-Hydroxy Vitamin D Total 91.8 ng/mL (>30) Folate 7.8 ng/mL (> or = 4.0) Thyroid Stimulating Hormone (TSH) 0.53 uIU/mL (0.32-4.0) Urine Creatinine 109.40 mg/dL Urine Microalbumin 13.0 mg/L Urine Microalbumin/Creatinine Ratio 11.8 ug/mg cr (<30) Coding Level of Care Code Est Pt Level 4 (07614) Complex EM visit Add On G2211 Diagnoses Primary hypertension I10 Hypertension type: primary hypertension Mixed hyperlipidemia E78.2 Hyperlipidemia type: mixed hyperlipidemia Elevated LFTs R79.89 Assessment & Plan Assessment & Plan (1) HTN (hypertension): Code(s): I10 - Essential (primary) hypertension Category: Medical Qualifiers: Hypertension type: primary hypertension Qualified Code(s): I10 - Essent ial (primary) hypertension (2) HLD (hyperlipidemia): Code(s): E78.5 - Hyperlipidemia, unspecified Category: Medical Qualifiers: Hyperlipidemia type: mixed hyperlipidemia Qualified Code(s): E78.2 - Mixed hyperlipidemia (3) Elevated LFTs: Code(s): R79.89 - Other specified abnormal findings of blood chemistry Category: Medical Plan . Orders: Orders Basic Metabolic Panel Today I10 - Essential (primary) hypertension Lipid Panel 4 Months E78.2 - Mixed hyperlipidemia, I10 - Essential (primary) hypertension, R79.89 - Other specified abnormal findings of blood chemistry Comprehensive Met. Panel 4 Months E78.2 - Mixed hyperlipidemia, I10 - Essential (primary) hypertension, R79.89 - Other specified abnormal findings of blood chemistry Hepatitis A,B,C Profile 4 Months E78.2 - Mixed hyperlipidemia, I10 - Essential (primary) hypertension, R79.89 - Other specified abnormal findings of blood chemistry Liver Fibrosis Pnl 4 Months E78.2 - Mixed hyperlipidemia, I10 - Essential (primary) hypertension, R79.89 - Other specified abnormal findings of blood chemistry Medications: New atorvastatin (Lipitor) 40 mg PO DAILY 90 tabs 0RF losartan 50 mg PO DAILY 90 tabs 0RF
[2025-05-07 10:37] VITALS: BP 160/100; PULSE 71; RESP 13; TEMP 36.2; O2SAT 98; BMI 38.2
[2025-05-07 11:03] VITALS: BP 158/98
--- OUTSIDE RECORDS SUMMARY | 2025-05-07 11:32 | XMS_ITS | Clinical Summary ---
Author Organization [employer] Address [address] [place] [address] Care Team Providers Care Beader Name Role Phone Stephanie Little Unavailable Unavailable [...] age to complete this topic Care Teams Beader Relationship Specialty Start Date End Date Stephanie Little Community Health Worker 10/10/22 Felix Jay Community Health Worker 07/04/23
== END 2025-05-07 11:06 | disposition home or self-care (01) ==
LOC: HO.HMCFM 10:32
PROVIDERS: PCP Nurse Practitioner Family; Visit Provider Nurse Practitioner Family
DX: I10 Essential (primary) hypertension (principal); E78.2 Mixed hyperlipidemia; R79.89 Other specified abnormal findings of blood chemistry

== ENCOUNTER 2025-06-03 14:59 | Outpatient (REF) | payer OTHER, SELFPAY ==
--- OUTSIDE RECORDS SUMMARY | 2025-06-03 16:26 | XMS_ITS | Clinical Summary ---
Author Organization [employer] Address [address] [place] [address] Care Team Providers Care Hebrew Teacher Name Role Phone Stephanie Little Unavailable Unavailable [...] COVID-19 Vaccine ( - 2023-2 5 season) 2025 Influenza Vaccine (#1) 2025 RSV Patients and [...] age to complete this topic Care Teams Hebrew Teacher Relationship Specialty Start Date End Date Stephanie Little Community Health Worker 10/10/22 Felix Jay Community Health Worker 07/04/23
[2025-06-03 18:04] LABS: Anion Gap 13 (12-20); Blood Urea Nitrogen 17 mg/dL (9-16); Calcium 9.3 mg/dL (8.4-10.2); Carbon Dioxide 25 mmol/L (22-29); Chloride 106 mmol/L (96-108); Estimated Glomerular Filt Rate > 60; Potassium 3.8 mmol/L (3.3-5.1); Sodium 140 mmol/L (135-145)
== END 2025-06-03 15:00 | disposition home or self-care (01) ==
LOC: HO.WFDLDS 14:59
PROVIDERS: Visit Provider Nurse Practitioner Family
DX: I10 Essential (primary) hypertension (principal)
CPT/HCPCS: 36415; 80048

== ENCOUNTER 2025-06-04 12:26 | Outpatient (AMB) | payer OTHER, SELFPAY ==
[2025-06-04 12:29] VITALS: BP 138/88; PULSE 82; O2SAT 94; BMI 39.0
--- NOTE | 2025-06-04 12:29 | A.OFFPC_ITS ---
Vital Signs 06/04/25 12:29 Height 5 ft 9 in Weight 264 lb BMI 39.0 BP 138/88 Blood Pressure Location Rt brachial Position Sitting Pulse 82 Pulse Source Pulse Oximeter Pulse Oximetry (%) 94 Intake Visit Reasons: 4 weeks BP recheck/repeat labs Allergies No Known Allergies (No Known Allergies*) Allergy (Verified 06/04/25 12:29) Medication List - Last Reconciled 06/04/25 by TROY EnriquezP- atorvastatin (Lipitor) 40 mg PO DAILY losartan 50 mg PO DAILY Tobacco use date assessed: 05/07/25 Dental Screening Dental Screen Date: 05/07/25 HPI HPI Comments History of Present Illness Details 59 y/o M with HTN, obesity, elevated LFT , HLD Surgery: ACL R repair, L collar bone w/ plate Fhx: Mom cancer; Dad 2022; 2 sisters (1 with DM), 1 bro; 5 children alive and well. Social: [employer] for [email or web address] . Health Maintenance: Tdap 2022 Colon 2017, poor prep; cologaurd 05/2025 negative, repeat 2027 Flu 06/03/25 Specialists: None History of Present Illness The patient is a 59-year-old male presenting with follow-up for hypertension and hypercholesterolemia, and a complaint of possible gout. Essential Hypertension: - Under treatment with losartan 50 mg da jose antonio. - Adequate control reported. - No adverse effects. Hypercholesterolemia: - On atorvastatin 400 mg. - No side effects reported. - Pending further lab evaluation. Gout: - Sudden L great toe pain and swelling - History of trauma: kicking wall. - No previous gout diagnosis. Review of Systems - Cardiovascular: Denies chest pain, pal pitations. - Musculoskeletal: Reports toe pain and swelling; denies previous gout. - General: Reports feeling well otherwis e, notes recent cold exposure. Physical Exam General: Well developed, well nourished, in no acute distress. Appears stated age. Head: Normocephalic, atraumatic. Eyes: Pupils are equal, round and reactive to light and accommodation. Conjunctivae are clear. Lungs: Clear to auscultation bilaterally. No rales, rhonchi or wheeze noted. Good air flow in all acharya. Musculoskeletal: Joints are nontender, without swelling, redness, or effusions. Pulses: Peripheral pulses are equal and palpable bilaterally. Extremities: No clubbing, cyanosis nor edema is noted. Base of L great toe erythematous, gout appearing, skin intact, no signs of infection. TTP Psych: Mood and affect appropriate. Results See below - Colonoscopy: Negative, repeat recommen ded in 2027. - Colonoscopy: Negative, repeat recommended in 2027. Discussion Notes In today's visit, we reviewed the management of the patient's hypertension, noting good control with losartan, and no side effects. We discussed cholesterol management with atorvastatin, and patience is required before reevaluating labs. The patient's toe pain, consistent with gout, was addressed by prescribing colchicine. I advised on the expected effectiveness and possible gastrointestinal side effects. Discussion on lifestyle modifications was reiterated. Follow-ups are planned for future blood pressure and lipid checks, with a scheduled appointment in late August or early September. Consent for colc hicine acknowledged in the patient's presence. Patient was given time to ask questions. All questions were answered to their satisfaction. Assessment and Plan 1. Essential Hypertension - Continue losartan 50 mg. 2. Hypercholesterolemia - Maintain atorvastatin 400 mg. - Schedule labs pre-next visit. 3. Gout L great toe - Administer colchicine. - Monitor for side effects. 4. Flu admin today; Cologaurd negative Patient Instructions - Continue taking losartan and atorvasta tin as prescribed. - Start colchicine; follow dosing instru ctions carefully. - Expect possible stomach upset. Stay ho me the day you take the medication. - Schedule labs before the next appointm ent in August or September. - Inform us if toe pain worsens or if ne w symptoms appear. Consent Patient was informed and verbally consented to the use of an ambient scribe for clinic note documentation during this visit. 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 1. Little interest or pleasure in doing things: not at all 2. Feeling down, depressed, or hopeless: not at all 3. Trouble falling or staying asleep, or sleeping too much: not at all 4. Feeling tired or having little energy: not at all 5. Poor appetite or overeating: not at all 6. Feeling bad about yourself - or that you are a failure or have let yourself or your family down: not at all 7. Trouble concentrating on things, such as reading the newspaper or watching television: not at all 8. Moving or speaking so slowly that other people could have noticed. Or the opposite - being so fidgety or restless that you have been moving around a lot more than usual: not at all 9. Thoughts that you would be better off or of hurting yourself in some way: not at all Total score: 0 Depression Screening Interpretation: Negative Depression Screening Done: Yes Source: Developed by Drs. Maldonado Sheehan, Jennifer Saeed, Juni Baez and colleagues, with an educational bertha from [employer]. Thrive Questionnaire Date Thrive assessed: 04/13/25 I am a: Patient What is your living situation today?: I have a steady place to live Within the past 12 months, did the food you bought not last and you didn't have the money to get more?: Never true Within the past 12 months, did you worry whether your food would run out before you got money to buy more?: Never true Do you have trouble paying for medicines?: No Do you have trouble getting transportation to medical appointments?: No Do you have trouble paying your heating and electricity bill?: No Do you have trouble taking care of your child, family member or friend?: No Do you have trouble with day-to-day activities such as bathing, preparing meals, shopping, managing finances, etc.?: No Are you currently unemployed and looking for a job?: No Are you interested in more education?: No Please select the resources that you would like help with: None Currently or been in a relationship where the following occur: No concerns reported THRIVE Score: 0 AUDIT C Alcohol Use Questionnaire (AUDIT-C) 1. How often do you have a drink containing alcohol?: 2-4 times a month 2. How many drinks containing alcohol do you have on a typical day when you are drinking?: 3 or 4 3. How often do you have six or more drinks on one occasion?: Never Total Score: 3 KERWIN-7 AMB Questionnaire KERWIN-7 Date KERWIN - 7 assessed: 04/20/25 Feeling nervous, anxious, or on edge: 0 = Not at all Not being able to stop or control worryin = Not at all Worrying too much about different things: 0 = Not at all Trouble relaxin = Not at all Being so restless that it is hard to sit still: 0 = Not at all Becoming easily annoyed or irritable: 0 = Not at all Feeling afraid as if something awful might happen: 0 = Not at all Total KERWIN-7 score (0-4 normal; 5-9 mild; 10-14 moderate; 15-21 severe): 0 Source: Developed by Drs. Maldonado Sheehan, Jennifer Saeed, Juni Baez and colleagues, with an educational bertha from [employer]. Physical exam (Primary Care) Vital Signs: Last Vital Signs Pulse 82 06/04/25 12:29 BP 138/88 06/04/25 12:29 Pulse Ox 94 06/04/25 12:29 BMI result Body Mass Index 39.0 Tobacco/Smoking Status: Tobacco use Status Tobacco use date assessed 05/07/25 06/04/25 12:33 Patient Tobacco Use Status Never used Tobacco 06/04/25 12:33 e-Cigarette/Vaping Use Never Used 06/04/25 12:33 PHQ-9: PHQ-9 Score PHQ-9: Total score 0 06/04/25 12:50 Depression Screening Interpretation: Negative Thrive Assessment: Date of Thrive Assessment Date Thrive assessed 04/13/25 06/04/25 12:33 Currently or been in a relationship where the following occur: No concerns reported Office Procedures Flu Questionnaire Does the patient have a severe egg allergy?: No Does the patient have severe life threatening allergies?: No Does the patient have a fever or illness today?: No Has the patient ever had Guillain-Pierpont Syndrome?: No Has the patient ever had any past reaction to a flu shot?: No Immunizations Fluarix [id number] (PF) 45 mcg (15 mcg x 3)/0.5 mL IM syringe Performing Provider: GRADY Enriquez Performing Location: [facility] Administered by: Michael Funez CMA on 06/04/25 12:57 Dose Route Admin Location Dispensed Lot Number Expiration Date 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 0.5 mL IM Left Deltoid 0.5 mL [id number] 03/01/26 [id number] [employer] VIS Given Date VIS Provided VIS Publication Date 06/04/25 Single Vaccine 24 Eligibility Eligibility Date Funding Source Not [facility] Eligible 06/04/25 Private Results Reviewed Results Reviewed: Laboratory 06/03/25 Result Units Range Interpretation Provider Comments Sodium Level 140 mmol/L (135-145) Potassium Level 3.8 mmol/L (3.3-5.1) Chloride Level 106 mmol/L (96-108) Carbon Dioxide Level 25 mmol/L (22-29) Anion Gap 13 (12-20) Blood Urea Nitrogen 17 mg/dL (9-16) High Creatinine 1.06 mg/dL (0.5-1.4) Estimated Creatinine Clearance Calc Not Reportable Estimat Glomerular Filtration Rate > 60 Random Glucose 192 mg/dL (60-115) High Calcium Level 9.3 mg/dL (8.4-10.2) Coding Level of Care Code Est Pt Level 4 (72094) Complex EM visit Add On G2211 Diagnoses History of colonoscopy Z98.890 Primary hypertension I10 Hypertension type: primary hypertension Mixed hyperlipidemia E78.2 Hyperlipidemia type: mixed hyperlipidemia Influenza vaccination administered at current visit Z23 Acute gout of left foot, unspecified cause M10.9 Gout site: foot Gout etiology: unspecified cause Chronicity: acute Laterality: left Assessment & Plan Assessment & Plan (1) History of colonoscopy: Onset Date: ~05/2025 Comment: negative cologuard 05/2025, repeat 2027 Code(s): Z98.890 - Other specified postprocedural states Category: Surgical (2) HTN (hypertension): Code(s): I10 - Essential (primary) hypertension Category: Medical Qualifiers: Hypertension type: primary hypertension Qualified Code(s): I10 - Essential (primary) hypertension (3) HLD (hyperlipidemia): Code(s): E78.5 - Hyperlipidemia, unspecified Category: Medical Qualifiers: Hyperlipidemia type: mixed hyperlipidemia Qualified Code(s): E78.2 - Mixed hyperlipidemia (4) Influenza vaccination administered at current visit: Code(s): Z23 - Encounter for immunization Category: Medical (5) Gout: Code(s): M10.9 - Gout, unspecified Category: Medical Qualifiers: Gout site: foot Gout etiology: unspecified cause Chronicity: acute Laterality: left Qualified Code(s): M10.9 - Gout, unspecified Plan . Orders: Orders Influenza [id number] Immunization Today Z23 - Encounter for immunization Medications: New colchicine (Colcrys) take 2 tab po x 1 then 1 tab po 1 hour later x 1 max dose 1/8mg/day 0.6 mg PO DAILY 3 tabs 0RF
--- OUTSIDE RECORDS SUMMARY | 2025-06-04 13:09 | XMS_ITS | Clinical Summary ---
Author Organization [employer] Address [address] [place] [address] Care Team Providers Care Supervisor Grove Name Role Phone Stephanie Little Unavailable Unavailable [...] age to complete this topic Care Teams Supervisor Grove Relationship Specialty Start Date End Date Stephanie Little Community Health Worker 10/10/22 Felix Jay Community Health Worker 07/04/23
== END 2025-06-04 12:58 | disposition home or self-care (01) ==
LOC: HO.HMCFM 12:26
PROVIDERS: PCP Nurse Practitioner Family; Visit Provider Nurse Practitioner Family
DX: Z98.890 Other specified postprocedural states (principal); I10 Essential (primary) hypertension; E78.2 Mixed hyperlipidemia; Z23 Encounter for immunization; M10.9 Gout, unspecified

== ENCOUNTER → 2025-06-04 12:26 | Outpatient (BNVA) | payer OTHER, SELFPAY | PROVIDERS: PCP Nurse Practitioner Family; Visit Provider Nurse Practitioner Family | DX: I10 Essential (primary) hypertension (principal); M10.9 Gout, unspecified; E78.2 Mixed hyperlipidemia; Z23 Encounter for immunization | CPT/HCPCS: 90471; 90656; 96127 ==